=== PATIENT | male | born 1970 | race Caucasian/White ===

== ENCOUNTER 2018-05-03 14:18 | Emergency (ER) | payer OTHER ==
[~2018-05-03] VITALS: Ht 182.8 cm; Wt 122.5 kg
[2018-05-03] MEDS ORDERED: CEPHALEXIN500 M1 PO (15:26)
[2018-05-03] MEDS ORDERED: ANTIBIOTIC28.4 GM T (15:39)
== END 2018-05-03 15:40 | disposition home or self-care (01) ==
LOC: ED 14:18
DX: S81.812A Laceration without foreign body, left lower leg, initial encounter (principal); W45.8XXA Other foreign body or object entering through skin, initial encounter; Y93.89 Activity, other specified; Y92.89 Other specified places as the place of occurrence of the external cause; Y99.8 Other external cause status